=== PATIENT | female | born 1955 | race African-American/Black ===

== ENCOUNTER 2017-01-17 09:10 | Emergency (ER) | payer OTHER ==
[~2017-01-17] VITALS: Ht 162.6 cm; Wt 111.6 kg
[~2017-01-17 09:10] MED LIST: ALBUTEROL SULF8.5 GM INH; AMLODIPINE BESY10 MG ORAL; AMOXICILLIN500 MG PO; ASPIRIN81 MG ORAL; ATIVAN1 MG ORAL; ATORVASTATIN CA10 MG PO; ATORVASTATIN CA20 MG ORAL; AZITHROMYCIN250 MG ORAL; BENADRYL25 MG ORAL; BENAZEPRIL HCL20 MG ORAL; CIPRO500 MG PO; FIORICET1 EA ORAL; FLUTICASONE PRO16 G1 NASAL; FUROSEMIDE20 M1 ORAL; HYDROCHLOROTHIA25 MG PO; HYDROCHLOROTHIA50 MG ORAL; IBUPROFEN600 MG PO; LISINOPRIL20 MG ORAL; NORCO 5-325 TA1 EACH ORAL; NORCO 5-325 TA1 EACH PO; NORCO 7.5-3251 EACH ORAL; OSTERA TABLET1 EACH PO; PHENERGAN SUPP25 MG RECTAL; PREDNISONE20 MG ORAL; PROMETHAZINE-C118 M1 ORAL; RANITIDINE HCL150 MG ORAL; TENORMIN50 MG PO; TRUFORM COMPRE1 EACH MC; UNOBMED; VALIUM5 MG PO; VENTOLIN HFA18 GM INH; VICODIN 5-5001 EACH PO; VICODIN ES 7.51 EAC1 ORAL; VICODIN ES 7.51 EACH PO; ZOFRAN4 MG ORAL; ZOFRAN4 MG PO
[2017-01-17] MEDS ORDERED: LOSARTAN POTASS50 MG ORAL (09:15)
[2017-01-17 09:19] VITALS: BP 174/104
[2017-01-17] MEDS ORDERED: Famotidine 20 MG/ 2ML VIAL IVP ONE (09:30)
[2017-01-17] MEDS ORDERED: DiphenhydrAMINE 50mg/ml Inj IVP ONE (09:30)
[2017-01-17] MEDS ORDERED: Metoclopramide 10mg/2ml Inj IVP ONE (09:30)
[2017-01-17 09:59] LABS: BASOPHILS % (AUTO) 2.4 % (0.0-2.0); EOSINOPHILS % (AUTO) 0.7 % (0.0-3.0); LYMPHOCYTES % (AUTO) 33.9 % (20.0-45.0); MEAN CORPUSCULAR HGB CONC 32.8 G/DL (32.0-36.0); MEAN CORPUSCULAR VOLUME 91 FL (80-99); MONOCYTES % (AUTO) 7.5 % (1.0-10.0); NEUTROPHILS % (AUTO) 55.5 % (45.0-75.0); PLATELET COUNT 295 K/UL (150-450); RED BLOOD COUNT 4.66 M/UL (4.20-5.40); RED CELL DISTRIBUTION WIDTH 12.1 % (11.6-14.8); WHITE BLOOD COUNT 5.7 K/UL (4.8-10.8)
[2017-01-17 10:07] LABS: APPEARANCE,URINE CLEAR; KETONES,URINE NEGATIVE (NEGATIVE); LEUKOCYTE ESTERASE ,URINE 3+ (NEGATIVE); NITRITE,URINE NEGATIVE (NEGATIVE); PH,URINE 7 (4.5-8.0); PROTEIN,URINE 2+ (NEGATIVE); UROBILINOGEN,URINE 1 MG/DL (0.0-1.0)
[2017-01-17 10:12] LABS: INR 0.9 (0.9-1.1); PROTHROMBIN TIME 9.9 SEC (9.30-11.50)
--- NOTE | 2017-01-17 10:14 | Emergency Room Report ---
History of Present Illness General Chief Complaint: Hypertension Source: Patient, Medical Record Present Illness HPI Patient presents with headache for 3 days. It's across her forehead. Feels a pounding. This happens from migraines or when her blood pressure is out of control. She states her blood pressure has been out of control the past 3 days. She is taking her medications. She's not sure of the names (atenolol 50 , lisiopril ?, HCTZ, cozaar). Pain 8/10 pounding, not radiate, constant. No aura. No NV. No fevers, change in vision, chest pain, dyspnea. The last time this happened she got better with a medicine with IV benadryl. Not worst ARMENTA in life. No renal problems. In past treated with clonidine in ED. No on this med. Some stress. In past had dx of opiate dependence. Allergies: Coded Allergies: No Known Allergies (Verified , 06/03/08) Patient History Past Medical History: see triage record Nursing Documentation-PMH Hx Hypertension: Yes Hx Pacemaker: No Hx COPD: No Hx Diabetes: No Hx Cancer: No Hx Gastrointestinal Problems: Yes - GERD Hx Dialysis: No Hx Neurological Problems: Yes Hx Cerebrovascular Accident: No Hx Seizures: No Review of Systems All Other Systems: negative except mentioned in HPI Physical Exam Vital Signs Date Time Temp Pulse Resp B/P Pulse Ox O2 Delivery O2 Flow Rate FiO2 01/17/17 09:11 98.2 76 16 174/104 97 Room Air Sp02 EP Interpretation: reviewed, normal General Appearance: well appearing, no apparent distress, GCS 15 Head: normocephalic Eyes: bilateral eye EOMI, bilateral eye PERRL, bilateral eye normal inspection ENT: moist mucus membranes Neck: supple Respiratory: lungs clear, normal breath sounds Cardiovascular #1: regular rate, rhythm Cardiovascular #2: 2+ radial (R) Gastrointestinal: normal inspection, normal bowel sounds, non tender, no mass, non-distended Musculoskeletal: back normal, gait/station normal, normal range of motion Neurologic: alert, oriented x3, tuyere fitter III-XII nml as tested, motor strength/tone normal, DTRs symmetric, sensory intact, cerebellar normal, normal gait, speech normal Psychiatric: mood/affect normal Skin: normal inspection, warm/dry Medical Decision Making Diagnostic Impression: Primary Impression: Headache Qualified Codes: R51 - Headache Additional Impression: hypertension ER Course Patient presents with headache and hypertension. Ddx: HTN urgency/malignant, renal failure, migraine amongst others. No red flag sy or findings. Still need to review labs for renal function and eval cor and electrolytes. Will treat with IV reglan and benadryl. EKG unremarkable. Labs elevated ESR and UTI. Improved with treatment. Blood pressure not treated in ED directly. Abx started. Patient stable for outpatient observation and treatment. Laboratory Tests Test 01/17/17 09:30 01/17/17 09:40 Urine Color Yellow Urine Appearance Clear Urine pH 7 (4.5-8.0) Urine Specific [place] 1.010 (1.005-1.035) Urine Protein 2+ (NEGATIVE) H Urine Glucose (UA) Negative (NEGATIVE) Urine Ketones Negative (NEGATIVE) Urine Occult Blood 2+ (NEGATIVE) H Urine Nitrite Negative (NEGATIVE) Urine Bilirubin Negative (NEGATIVE) Urine Urobilinogen 1 MG/DL (0.0-1.0) H Urine Leukocyte Esterase 3+ (NEGATIVE) H Urine RBC 2-4 /HPF (0 - 2) H Urine WBC 5-10 /HPF (0 - 2) H Urine Squamous Epithelial Cells Few /LPF (NONE/OCC) Urine Bacteria Few /HPF (NONE) White Blood Count 5.7 K/UL (4.8-10.8) Red Blood Count 4.66 M/UL (4.20-5.40) Hemoglobin 14.0 G/DL (12.0-16.0) Hematocrit 42.6 % (37.0-47.0) Mean Corpuscular Volume 91 FL (80-99) Mean Corpuscular Hemoglobin 30.0 PG (27.0-31.0) Mean Corpuscular Hemoglobin Concent 32.8 G/DL (32.0-36.0) Red Cell Distribution Width 12.1 % (11.6-14.8) Platelet Count 295 K/UL (150-450) Mean Platelet Volume 7.0 FL (6.5-10.1) Neutrophils (%) (Auto) 55.5 % (45.0-75.0) Lymphocytes (%) (Auto) 33.9 % (20.0-45.0) Monocytes (%) (Auto) 7.5 % (1.0-10.0) Eosinophils (%) (Auto) 0.7 % (0.0-3.0) Basophils (%) (Auto) 2.4 % (0.0-2.0) H Erythrocyte Sedimentation Rate 63 MM/HR (0-30) H Prothrombin Time 9.9 SEC (9.30-11.50) Prothrombin Time INR 0.9 (0.9-1.1) PTT 26 SEC (23-33) Sodium Level 139 mEQ/L (135-145) Potassium Level 4.6 mEQ/L (3.4-4.9) Chloride Level 97 mEQ/L (98-107) L Carbon Dioxide Level 26 mEQ/L (20-30) Anion Gap 16 (5-15) H Blood Urea Nitrogen 10 mg/dL (7-23) Creatinine 0.7 mg/dL (0.5-0.9) Estimate Glomerular Filtration Rate > 60 mL/min (>60) Glucose Level 115 mg/dL (74-106) H Calcium Level 11.0 mg/dL (8.6-10.2) H Total Bilirubin 0.4 mg/dL (0.0-1.2) Aspartate Amino Transferase (AST) 22 U/L (5-40) Alanine Aminotransferase (ALT) 14 U/L (3-33) Alkaline Phosphatase 141 U/L (35-104) H Total Creatine Kinase 64 U/L (26-140) Troponin I < 0.30 ng/mL (<=0.30) Pro-B-Type Natriuretic Peptide 104 pg/mL (0-125) Total Protein 8.5 g/dL (6.6-8.7) Albumin 4.4 g/dL (3.5-5.2) Globulin 4.1 g/dL Albumin/Globulin Ratio 1.0 (1.0-2.7) EKG Diagnostic Results Rate: normal Rhythm: NSR ST Segments: no acute changes - lvh Rhythm Strip Diag. Results EP Interpretation: yes Rhythm: NSR, no PVC's, no ectopy Chest X-Ray Diagnostic Results Chest X-Ray Ordered: No Last Vital Signs Date Time Temp Pulse Resp B/P Pulse Ox O2 Delivery O2 Flow Rate FiO2 01/17/17 11:02 98.2 69 16 166/93 97 Room Air Status: improved Disposition: HOME, SELF-CARE Condition: Improved Scripts Nitrofurantoin Monohyd/M-Cryst* (MACROBID 100 MG*) 100 Mg Capsule 100 MG ORAL EVERY 12 HOURS, #14 CAP Prov: Dylan Wang M.D. 01/17/17 Acetamin/Butalbital/Caffeine* (FIORICET*) 1 Ea Tab 1 TAB ORAL Q6H, #6 TAB 0 Refills Prov: Dylan Wang M.D. 01/17/17 Referrals: [facility],REFERRING (PCP) Dylan Wang M.D. Jan 17, 2017 10:14
[2017-01-17 10:17] LABS: BACTERIA,URINE FEW /HPF; SQUAMOUS EPITHELIAL CELL,UR FEW /LPF (NONE/OCC)
[2017-01-17 10:18] LABS: ALANINE AMINOTRANSFERASE 14 U/L (3-33); ANION GAP 16 (5-15); ASPARTATE AMINO TRANSFERASE 22 U/L (5-40); CARBON DIOXIDE 26 mEQ/L (20-30); CHLORIDE 97 mEQ/L (98-107); CREATININE 0.7 mg/dL (0.5-0.9); GLOMERULAR FILTRATION RATE > 60 mL/min (>60); HEMOLYSIS 98; POTASSIUM 4.6 mEQ/L (3.4-4.9); SODIUM 139 mEQ/L (135-145); TOTAL PROTEIN 8.5 g/dL (6.6-8.7); TROPONIN I < 0.30 ng/mL (<=0.30)
[2017-01-17 10:55] VITALS: BP 166/93
[2017-01-17] MEDS ORDERED: NITROFURANTOIN100 M2 ORAL (10:57)
[2017-01-17] MEDS ORDERED: FIORICET1 EA ORAL (10:57)
[2017-01-17 11:02] VITALS: BP 166/93
[2017-01-17 11:14] LABS: ERYTHROCYTE SEDIMENTATION RATE 63 MM/HR (0-30)
--- NOTE | 2017-01-18 16:39 | Cardiology Report ---
APPROVED REPORT EKG Measurement Heart [id number] Normal sinus rhythm Moderate voltage criteria for LVH, may be normal variant Borderline ECG
== END 2017-01-17 11:16 | disposition home or self-care (01) ==
LOC: EMR 09:37
DX: R51 Headache (principal); I10 Essential (primary) hypertension; K21.9 Gastro-esophageal reflux disease without esophagitis
CPT/HCPCS: 36415; 80053; 81003; 82550; 83880; 84484; 85025; 85610; 85651; 85730; 93005; 96374; 96375; 99284; J1200; J2765; S0028

== ENCOUNTER 2017-04-01 11:03 | Emergency (ER) | payer OTHER ==
[~2017-04-01] VITALS: Ht 162.6 cm; Wt 111.6 kg
[~2017-04-01 11:03] MED LIST changes: +LOSARTAN POTASS50 MG ORAL; +NITROFURANTOIN100 M2 ORAL
[2017-04-01 11:27] VITALS: BP 159/99
[2017-04-01] MEDS ORDERED: Bacitracin Oint UD TOPIC ONE (12:00)
[2017-04-01] MEDS ORDERED: Tetanus/Diptheria/Pertussis Vaccine 0.5ml Syr IM ONE (12:00)
--- NOTE | 2017-04-01 12:16 | Emergency Room Report ---
History of Present Illness General Chief Complaint: Laceration Source: Patient Present Illness HPI Patient taking out trash and cut finger on broken bottle. Bandaged by neighbor and not sig bleeding. Pain = sharp and stinging 8/10. NO numbness. Tetanus > 10. R handed. C/O headache. Mild migraine (usually worse, but similar pattern). Allergies: Coded Allergies: No Known Allergies (Verified , 06/03/08) Patient History Past Medical History: see triage record Social History: Denies: smoking Social History Narrative disabled Last Menstrual Period: na Reviewed Nursing Documentation: PMH: Agreed, PSxH: Agreed Nursing Documentation-PMH Past Medical History: No History, Except For Hx Hypertension: Yes Hx Pacemaker: No Hx COPD: No Hx Diabetes: No Hx Cancer: No Hx Gastrointestinal Problems: Yes - GERD Hx Dialysis: No Hx Neurological Problems: Yes Hx Cerebrovascular Accident: No Hx Seizures: No Review of Systems Constitutional: Denies: fever Eye: Denies: eye pain, blurred vision ENT: Denies: throat pain Gastrointestinal: Denies: nausea, vomiting Musculoskeletal: Reports: see HPI Skin: Reports: see HPI Neurological: Reports: see HPI Hematologic/Lymphatic: Reports: see HPI Physical Exam Vital Signs Date Time Temp Pulse Resp B/P (MAP) Pulse Ox O2 Delivery O2 Flow Rate FiO2 04/01/17 11:21 99.5 64 18 159/99 98 Room Air Sp02 EP Interpretation: reviewed, normal General Appearance: well appearing, no apparent distress Head: normocephalic, atraumatic Eyes: bilateral eye normal inspection, bilateral eye PERRL ENT: hearing grossly normal, normal voice, moist mucus membranes Neck: full range of motion, supple Respiratory: no respiratory distress, speaking full sentences Cardiovascular #1: regular rate, rhythm Cardiovascular #2: 2+ radial (R) - good vasc Musculoskeletal: gait/station normal, normal range of motion Neurologic: alert, motor strength/tone normal, sensory intact Psychiatric: mood/affect normal Skin: normal color, other - superficial lac on R thumb - not need sutures - wart on knuckle of adjacent finger, laceration - R little finger Procedures Laceration/Wound Repair Laceration/Wound Repair : Consent: Verbal Wound Location: upper extremity Wound's Depth, Shape: superficial Wound Length (cm): 2 - 2.5 Wound Explored: clean Betadine Prep?: Yes Anesthesia: 1% Lidocaine Wound Debrided: none Wound Repaired With: sutures Suture Size/Type: 6:0 Layer Closure?: No Sterile Dressing Applied?: Yes Splint Applied?: No Patient Tolerated: Well Complications: None Medical Decision Making Diagnostic Impression: Primary Impression: Laceration Additional Impression: Headache Qualified Codes: R51 - Headache ER Course Patient with glass laceration. Needs sutures. Needs tetanus. Neurovasc and tendons intact. Laceration repaired. Tolerated well. C/O ARMENTA. Initially asked for shot. Then asked for rx. Patient stable for outpatient observation and treatment. Prior dx noted Last Vital Signs Date Time Temp Pulse Resp B/P (MAP) Pulse Ox O2 Delivery O2 Flow Rate FiO2 04/01/17 12:35 99.5 64 18 159/99 98 Room Air Status: improved Disposition: HOME, SELF-CARE Condition: Improved Scripts Ibuprofen* (MOTRIN*) 600 Mg Tablet 600 MG ORAL Q6H Y for For Pain, #14 TAB Prov: Dylan Wang M.D. 04/01/17 Tramadol Hcl* (ULTRAM*) 50 Mg Tablet 50 MG ORAL Q6H Y for For Pain, #6 TAB 0 Refills Prov: Dylan Wang M.D. 04/01/17 Bacitracin (Bacitracin) 28.4 Gm Oint...g. 1 APPLIC TOPIC BID, #10 GM Prov: Dylan Wang M.D. 04/01/17 Dylan Wang M.D. Apr 01, 2017 12:16
[2017-04-01] MEDS ORDERED: BACITRACIN15 GM TOPIC (12:18)
[2017-04-01] MEDS ORDERED: TRAMADOL HCL50 MG ORAL (12:18)
[2017-04-01] MEDS ORDERED: IBUPROFEN600 MG ORAL (12:18)
[2017-04-01 12:35] VITALS: BP 159/99
== END 2017-04-01 13:00 | disposition home or self-care (01) ==
LOC: EMR 12:50
DX: S61.011A Laceration without foreign body of right thumb without damage to nail, initial encounter (principal); S61.216A Laceration without foreign body of right little finger without damage to nail, initial encounter; W25.XXXA Contact with sharp glass, initial encounter; Y92.89 Other specified places as the place of occurrence of the external cause; R51 Headache; Z23 Encounter for immunization; I10 Essential (primary) hypertension; K21.9 Gastro-esophageal reflux disease without esophagitis
CPT/HCPCS: 12001; 90471; 90715; 99284; Z7502

== ENCOUNTER 2017-07-04 10:31 | Emergency (ER) | payer OTHER ==
[~2017-07-04] VITALS: Ht 162.6 cm; Wt 113.4 kg
[~2017-07-04 10:31] MED LIST changes: +BACITRACIN15 GM TOPIC; +IBUPROFEN600 MG ORAL; +TRAMADOL HCL50 MG ORAL
[2017-07-04] MEDS ORDERED: ATORVASTATIN CA20 MG ORAL (10:42)
[2017-07-04] MEDS ORDERED: LOSARTAN POTASS50 MG ORAL (10:42)
[2017-07-04] MEDS ORDERED: HYDROCHLOROTHIA25 MG ORAL (10:42)
[2017-07-04 10:46] VITALS: BP 148/87
[2017-07-04] MEDS ORDERED: MECLIZINE HCL25 MG ORAL (11:11)
[2017-07-04 11:15] VITALS: BP 147/88
[2017-07-04] MEDS ORDERED: Meclizine 25mg tab ORAL ONE (11:15)
--- NOTE | 2017-07-10 06:56 | Emergency Room Report ---
History of Present Illness General Chief Complaint: Dizziness Source: Patient Present Illness HPI Patient is 62-year-old female presented after increased dizziness. Patient gradual onset of symptoms. She reports having spinning sensation. She denied any fever. She had prior history of hypertension. Patient reported having a moderate headache. The dizziness was worse with movement. Allergies: Coded Allergies: No Known Allergies (Verified , 06/03/08) Patient History Past Medical History: see triage record Reviewed Nursing Documentation: PMH: Agreed, PSxH: Agreed Nursing Documentation-PMH Hx Hypertension: Yes Hx Pacemaker: No Hx COPD: No Hx Diabetes: No Hx Cancer: No Hx Gastrointestinal Problems: Yes - GERD Hx Dialysis: No Hx Neurological Problems: Yes Hx Cerebrovascular Accident: No Hx Seizures: No Review of Systems All Other Systems: negative except mentioned in HPI Physical Exam Vital Signs Date Time Temp Pulse Resp B/P (MAP) Pulse Ox O2 Delivery O2 Flow Rate FiO2 07/04/17 10:39 98.1 84 20 153/109 99 Room Air General Appearance: well appearing, no apparent distress, alert, GCS 15, non- toxic Head: normocephalic, atraumatic ENT: hearing grossly normal, normal voice Neck: full range of motion, supple Respiratory: no respiratory distress, speaking full sentences Cardiovascular #1: normal inspection, regular rate, rhythm, no edema Gastrointestinal: normal inspection, normal bowel sounds Musculoskeletal: no calf tenderness Neurologic: normal inspection, alert, oriented x3, responsive, pediatric psychiatrist III-XII nml as tested, motor strength/tone normal, normal gait Psychiatric: mood/affect normal Skin: no rash Medical Decision Making Diagnostic Impression: Primary Impression: Vertigo ER Course Patient presented for dizziness. Differential diagnosis included but not limited to urinary tract infection, anemia, arrhythmia, abdominal aortic aneurysm, CVA, subarachnoid hemorrhage, benign positional vertigo. A CT imaging was ordered due to patient's concerning history. She is given oral meclizine. The patient was awake alert and refused CT imaging and stated she wanted to leave. The patient was advised risk benefits alternatives of leaving AGAINST MEDICAL ADVICE and he indicated understanding and all questions are answered patient still continued want to leave and signed AGAINST MEDICAL ADVICE. Despite risks including but not limited to disability and worsening of current lifestyle. The patient was advised to return at anytime. Last Vital Signs Date Time Temp Pulse Resp B/P (MAP) Pulse Ox O2 Delivery O2 Flow Rate FiO2 07/04/17 11:15 98.2 78 20 147/88 99 Room Air Status: improved Disposition: AGAINST MEDICAL ADVICE Condition: Unknown Scripts Meclizine Hcl* (MECLIZINE*) 25 Mg Tablet 25 MG ORAL THREE TIMES A DAY, #14 TAB Prov: Felix Whitehead 07/04/17 Referrals: [facility],REFERRING (PCP) Patient Instructions: Vertigo Felix Whitehead Jul 10, 2017 06:56
== END 2017-07-04 11:25 | disposition left against medical advice (07) ==
LOC: EMR 10:42
DX: R42 Dizziness and giddiness (principal); I10 Essential (primary) hypertension
CPT/HCPCS: 99283

== ENCOUNTER 2017-10-24 14:32 | Emergency (ER) | payer OTHER ==
[~2017-10-24] VITALS: Ht 162.6 cm; Wt 112.9 kg
[~2017-10-24 14:32] MED LIST changes: +HYDROCHLOROTHIA25 MG ORAL; +MECLIZINE HCL25 MG ORAL
[2017-10-24 15:47] LABS: BASOPHILS % (AUTO) 1.6 % (0.0-2.0); EOSINOPHILS % (AUTO) 0.5 % (0.0-3.0); HEMOGLOBIN 13.9 G/DL (12.0-16.0); LYMPHOCYTES % (AUTO) 30.9 % (20.0-45.0); MEAN CORPUSCULAR VOLUME 92 FL (80-99); MONOCYTES % (AUTO) 11.2 % (1.0-10.0); NEUTROPHILS % (AUTO) 55.9 % (45.0-75.0); PLATELET COUNT 285 K/UL (150-450); RED BLOOD COUNT 4.48 M/UL (4.20-5.40); RED CELL DISTRIBUTION WIDTH 12.5 % (11.6-14.8); WHITE BLOOD COUNT 7.7 K/UL (4.8-10.8)
[2017-10-24] MEDS ORDERED: Morphine Sulfate 2mg/ml Inj IVP ONE (16:00)
[2017-10-24 16:02] LABS: ANION GAP 9 mmol/L (5-15); BLOOD UREA NITROGEN 7 mg/dL (7-18); CALCIUM 10.7 MG/DL (8.5-10.1); CARBON DIOXIDE 27 MMOL/L (21-32); CHLORIDE 104 MMOL/L (98-107); CREATININE 0.6 MG/DL (0.55-1.30); POTASSIUM 3.8 MMOL/L (3.5-5.1); SODIUM 140 MMOL/L (136-145)
[2017-10-24 16:16] LABS: ALANINE AMINOTRANSFERASE 28 U/L (12-78); ALBUMIN 3.5 G/DL (3.4-5.0); ALBUMIN/GLOBULIN RATIO 0.8 (1.0-2.7); ALKALINE PHOSPHATASE 111 U/L (46-116); ASPARTATE AMINO TRANSFERASE 22 U/L (15-37); BILIRUBIN,TOTAL 0.3 MG/DL (0.2-1.0)
[2017-10-24 16:23] LABS: APPEARANCE,URINE CLEAR; BILIRUBIN, URINE NEGATIVE (NEGATIVE); COLOR,URINE PALE YELLOW; GLUCOSE, URINE (UA) NEGATIVE (NEGATIVE); KETONES,URINE NEGATIVE (NEGATIVE); LEUKOCYTE ESTERASE ,URINE 1+ (NEGATIVE); NITRITE,URINE NEGATIVE (NEGATIVE); PH,URINE 7 (4.5-8.0); PROTEIN,URINE 1+ (NEGATIVE); UROBILINOGEN,URINE NORMAL MG/DL (0.0-1.0)
[2017-10-24 16:36] VITALS: BP 137/82
[2017-10-24] MEDS ORDERED: LOPERAMIDE2 M1 PO (17:12)
[2017-10-24 17:32] VITALS: BP 137/82
--- NOTE | 2017-10-24 22:25 | Emergency Room Report ---
History of Present Illness General Chief Complaint: Generalized Weakness Source: Patient Present Illness HPI Patient is a 62-year-old female who presented after increased generalized weakness as well as headache and diarrhea. Patient had multiple sick contacts at home. Patient states that she had been having some gradual onset of moderate severity headache. She denies any fever. She denies any neck stiffness. She reported having intermittent abdominal cramping. She denies black or bloody stool. She reports having some watery diarrhea. She denied feeling dizzy or lightheaded. She states she normally takes blood pressure medications. Allergies: Coded Allergies: No Known Allergies (Verified , 06/03/08) Patient History Past Medical History: see triage record Last Menstrual Period: na Reviewed Nursing Documentation: PMH: Agreed; PSxH: Agreed Nursing Documentation-PMH Past Medical History: No History, Except For Hx Cardiac Problems: Yes - "irregual heartrate" Hx Hypertension: Yes Hx Pacemaker: No Hx COPD: No Hx Diabetes: No Hx Cancer: No Hx Gastrointestinal Problems: Yes - GERD Hx Dialysis: No Hx Neurological Problems: Yes - migraines Hx Cerebrovascular Accident: No Hx Seizures: No Review of Systems All Other Systems: negative except mentioned in HPI Physical Exam Vital Signs Date Time Temp Pulse Resp B/P (MAP) Pulse Ox O2 Delivery O2 Flow Rate FiO2 10/24/17 14:40 98.8 107 20 141/90 96 Room Air 98.8 Sp02 EP Interpretation: reviewed, normal General Appearance: normal inspection, well appearing, no apparent distress, alert, obese Head: atraumatic ENT: normal ENT inspection, hearing grossly normal, normal voice Neck: normal inspection, full range of motion, supple, no bony tend Respiratory: normal inspection, lungs clear, normal breath sounds, no respiratory distress, no retraction, no wheezing Cardiovascular #1: regular rate, rhythm, no edema Gastrointestinal: normal inspection, normal bowel sounds, non tender, soft, no guarding, no hernia Genitourinary: no CVA tenderness Musculoskeletal: normal inspection, back normal, normal range of motion Neurologic: normal inspection, alert, oriented x3, responsive, french folder III-XII nml as tested, motor strength/tone normal, speech normal Psychiatric: normal inspection, judgement/insight normal, mood/affect normal Skin: normal inspection, normal color, no rash Medical Decision Making Diagnostic Impression: Primary Impression: Headache Additional Impression: Viral syndrome ER Course Patient presented for generalized weakness. Differential diagnosis included was not limited to anemia, urinary tract infection, electrolyte abnormality, hypothyroidism, myocardial infarction, myasthenia gravis, dehydration, among others. Because of complexity of patient's case laboratory testing and imaging studies were ordered. Laboratory study showed evidence low TSH. Patient was advised to follow up with primary care physician for further testing and treatment. Patient was given medications for headache. She stated she felt better and wanted to go home. The patient is advised to follow up with primary care doctor in 1-2 days. Patient is advised to return if any worsening condition or if any changes in status that are concerning. This report is dictated with Spark physical therapy teacher software which may occasionally lead to discrepancies related to use of this software. Laboratory Tests Test 10/24/17 14:30 10/24/17 15:30 Urine Color Pale yellow Urine Appearance Clear Urine pH 7 (4.5-8.0) Urine Specific [place] 1.005 (1.005-1.035) Urine Protein 1+ (NEGATIVE) H Urine Glucose (UA) Negative (NEGATIVE) Urine Ketones Negative (NEGATIVE) Urine Occult Blood 1+ (NEGATIVE) H Urine Nitrite Negative (NEGATIVE) Urine Bilirubin Negative (NEGATIVE) Urine Urobilinogen Normal MG/DL (0.0-1.0) Urine Leukocyte Esterase 1+ (NEGATIVE) H Urine RBC 2-4 /HPF (0 - 2) H Urine WBC 0-2 /HPF (0 - 2) Urine Squamous Epithelial Cells Occasional /LPF Urine Bacteria Occasional /HPF (NONE) White Blood Count 7.7 K/UL (4.8-10.8) Red Blood Count 4.48 M/UL (4.20-5.40) Hemoglobin 13.9 G/DL (12.0-16.0) Hematocrit 41.0 % (37.0-47.0) Mean Corpuscular Volume 92 FL (80-99) Mean Corpuscular Hemoglobin 31.0 PG (27.0-31.0) Mean Corpuscular Hemoglobin Concent 33.8 G/DL (32.0-36.0) Red Cell Distribution Width 12.5 % (11.6-14.8) Platelet Count 285 K/UL (150-450) Mean Platelet Volume 6.7 FL (6.5-10.1) Neutrophils (%) (Auto) 55.9 % (45.0-75.0) Lymphocytes (%) (Auto) 30.9 % (20.0-45.0) Monocytes (%) (Auto) 11.2 % (1.0-10.0) H Eosinophils (%) (Auto) 0.5 % (0.0-3.0) Basophils (%) (Auto) 1.6 % (0.0-2.0) Sodium Level 140 MMOL/L (136-145) Potassium Level 3.8 MMOL/L (3.5-5.1) Chloride Level 104 MMOL/L (98-107) Carbon Dioxide Level 27 MMOL/L (21-32) Anion Gap 9 mmol/L (5-15) Blood Urea Nitrogen 7 mg/dL (7-18) Creatinine 0.6 MG/DL (0.55-1.30) Estimate Glomerular Filtration Rate > 60 mL/min (>60) Glucose Level 96 MG/DL (74-106) Calcium Level 10.7 MG/DL (8.5-10.1) H Total Bilirubin 0.3 MG/DL (0.2-1.0) Aspartate Amino Transferase (AST) 22 U/L (15-37) Alanine Aminotransferase (ALT) 28 U/L (12-78) Alkaline Phosphatase 111 U/L (46-116) Troponin I 0.053 ng/mL (0.000-0.056) Total Protein 7.9 G/DL (6.4-8.2) Albumin 3.5 G/DL (3.4-5.0) Globulin 4.4 g/dL Albumin/Globulin Ratio 0.8 (1.0-2.7) L Thyroid Stimulating Hormone (TSH) 0.207 uiU/mL (0.358-3.740) EKG Diagnostic Results Rate: normal - 84 Rhythm: NSR ST Segments: no acute changes Last Vital Signs Date Time Temp Pulse Resp B/P (MAP) Pulse Ox O2 Delivery O2 Flow Rate FiO2 10/24/17 17:32 98.0 85 20 137/82 96 Room Air 98.0 Status: improved Disposition: HOME, SELF-CARE Condition: Stable Scripts Loperamide Hcl (LOPERAMIDE) 2 Mg Tablet 2 MG PO NEEDED PRN for Diarrhea, #20 TAB Prov: Felix Whitehead 10/24/17 Patient Instructions: Felix Ramirez Oct 24, 2017 22:25
--- NOTE | 2017-10-25 16:11 | Cardiology Report ---
APPROVED REPORT EKG Measurement Heart [id number] IN [id number] Normal sinus rhythm Minimal voltage criteria for LVH, may be normal variant Borderline ECG
== END 2017-10-24 17:34 | disposition home or self-care (01) ==
LOC: EMR 15:15
DX: R51 Headache (principal); B34.9 Viral infection, unspecified; I10 Essential (primary) hypertension; K21.9 Gastro-esophageal reflux disease without esophagitis
CPT/HCPCS: 36415; 80053; 81001; 82962; 84443; 84484; 85025; 93005; 96374; 96375; 99284; J0780; J2270

== ENCOUNTER 2017-12-04 15:45 | Emergency (ER) | payer OTHER ==
[~2017-12-04] VITALS: Ht 162.6 cm; Wt 112.5 kg
[~2017-12-04 15:45] MED LIST changes: +LOPERAMIDE2 M1 PO
[2017-12-04] MEDS ORDERED: NORVASC10 MG ORAL (16:03)
[2017-12-04] MEDS ORDERED: NORCO 10-325 T1 EACH ORAL (16:03)
[2017-12-04 16:04] VITALS: BP 160/98
[2017-12-04] MEDS ORDERED: Meclizine 25mg tab ORAL ONE (16:15)
[2017-12-04] MEDS ORDERED: MECLIZINE HCL25 MG ORAL (16:56)
[2017-12-04 18:33] VITALS: BP 160/98
--- NOTE | 2017-12-04 19:54 | Emergency Room Report ---
History of Present Illness General Chief Complaint: Dizziness Source: Patient Present Illness HPI 62-year-old female presents ED complaining of headache and dizziness 2 days. Headache is throbbing, 8 out of 10, nonradiating. History of migraine. Denies photophobia. Also complaining of head spinning sensation. Denies neck stiffness. Denies fevers or chills. states she's had vertigo in the past and was prescribed medication which helped. No other aggravating or relieving factors. Denies any other associated symptoms Allergies: Coded Allergies: No Known Allergies (Verified , 06/03/08) Patient History Past Medical History: HTN, GERD, migraines Pertinent Family History: none Social History: Denies: smoking, alcohol use, drug use Now: No Immunizations: UTD Reviewed Nursing Documentation: PMH: Agreed; PSxH: Agreed Nursing Documentation-PMH Hx Cardiac Problems: Yes - "irregual heartrate" Hx Hypertension: Yes Hx Pacemaker: No Hx COPD: No Hx Diabetes: No Hx Cancer: No Hx Gastrointestinal Problems: Yes - GERD Hx Dialysis: No Hx Neurological Problems: Yes - migraines Hx Cerebrovascular Accident: No Hx Seizures: No Review of Systems All Other Systems: negative except mentioned in HPI Physical Exam Vital Signs Date Time Temp Pulse Resp B/P (MAP) Pulse Ox O2 Delivery O2 Flow Rate FiO2 12/04/17 15:59 98.3 87 20 160/98 99 Room Air 98.2 Sp02 EP Interpretation: reviewed, normal General Appearance: no apparent distress, alert, GCS 15, non-toxic Head: normocephalic, atraumatic Eyes: bilateral eye normal inspection, bilateral eye PERRL ENT: hearing grossly normal, normal pharynx, no angioedema, normal voice Neck: full range of motion, supple/symm/no masses Respiratory: chest non-tender, lungs clear, normal breath sounds, speaking full sentences Cardiovascular #1: regular rate, rhythm, no edema Cardiovascular #2: 2+ carotid (R), 2+ carotid (L), 2+ radial (R), 2+ radial (L) , 2+ dorsalis pedis (R), 2+ dorsalis pedis (L) Gastrointestinal: normal bowel sounds, non tender, soft, non-distended, no guarding, no rebound Rectal: deferred Genitourinary: normal inspection, no CVA tenderness Musculoskeletal: back normal, gait/station normal, normal range of motion, non- tender Neurologic: alert, oriented x3, responsive, harbormaster III-XII nml as tested, motor strength/tone normal, sensory intact, cerebellar normal, normal gait, speech normal Psychiatric: judgement/insight normal, memory normal, mood/affect normal, no suicidal/homicidal ideation Reflexes: 3+ bicep (R), 3+ bicep (L), 3+ tricep (R), 3+ tricep (L), 3+ knee (R) , 3+ knee (L) Skin: normal color, no rash, warm/dry, well hydrated Lymphatic: no adenopathy Medical Decision Making Diagnostic Impression: Primary Impression: Vertigo ER Course Hospital Course 62 yo F presents to ED c/o dizziness, headache Differential diagnoses include: MO/unstable angina, SVT, A. fib, V. tach, CVA/ TIA, intracranial mass, vertigo Clinical course Patient placed on stretcher. on classroom monitor. After initial history, physical exam reveals a middle-aged female in no acute distress. Cranial nerves II through XII grossly intact. Cerebellar exam intact. Normal gait. Patient had been here previously for similar presentation area patient was offered option for CT and workup which she declined then. I offered same workup at this time which she also declined. Patient states because of her migraine history she's had multiple CTs and MRIs all of which have been negative States that the meclizine did work well for her. patient given meclizine here Upon reassessment patient states his symptoms have improved. I. I feel this is a highly complex case requiring extensive working including EKG/Rhythm strip, Xray/CT/US, Blood/urine lab work, repeat exams while in ED, and administration of strong opiates/narcotics for pain control, admission to hospital or close patient follow up. Diagnosis - vertigo stable and discharged to home with prescription for meclizine. Followup with PMD. Return to ED if symptoms recur or worsen Last Vital Signs Date Time Temp Pulse Resp B/P (MAP) Pulse Ox O2 Delivery O2 Flow Rate FiO2 12/04/17 18:33 98.2 87 20 160/98 99 Room Air 98.2 Status: improved Disposition: HOME, SELF-CARE Condition: Stable Scripts Meclizine Hcl* (MECLIZINE*) 25 Mg Tablet 25 MG ORAL THREE TIMES A DAY, #20 TAB Prov: Filiberto Gray MD 12/04/17 Referrals: [facility],REFERRING (PCP) Patient Instructions: Vertigo Filiberto Gray MD December 04, 2017 19:54
== END 2017-12-04 17:15 | disposition home or self-care (01) ==
LOC: EMR 16:19
DX: R42 Dizziness and giddiness (principal); R51 Headache; I10 Essential (primary) hypertension; K21.9 Gastro-esophageal reflux disease without esophagitis; Z86.69 Personal history of other diseases of the nervous system and sense organs
CPT/HCPCS: 99283

== ENCOUNTER 2018-03-21 10:04 | Emergency (ER) | payer OTHER ==
[~2018-03-21] VITALS: Ht 162.6 cm; Wt 112.5 kg
[~2018-03-21 10:04] MED LIST changes: +NORCO 10-325 T1 EACH ORAL; +NORVASC10 MG ORAL
[2018-03-21 10:15] VITALS: BP 161/95
[2018-03-21] MEDS ORDERED: IBUPROFEN600 MG ORAL (10:24)
[2018-03-21] MEDS ORDERED: ALBUTEROL SULF8.5 GM INH (10:24)
[2018-03-21] MEDS ORDERED: CEPHALEXIN500 MG ORAL (10:24)
[2018-03-21 10:32] VITALS: BP 159/94
[2018-03-21 10:34] VITALS: BP 159/94
--- NOTE | 2018-03-21 12:41 | Emergency Room Report ---
History of Present Illness General Chief Complaint: Skin Rash/Abscess Source: Patient Present Illness HPI 62-year-old female presents ED complaining of insect bite to her forehead. States that she believes it is a spider bite. Happened last night. Noted pain and swelling to her forehead. Throbbing, 8 out of 10, nonradiating. States there are spiders in her house. Also complaining of a mild cough for a few days. States history of bronchitis. Denies fevers or chills. Denies shortness of breath. No other aggravating relieving factors. Denies any other associated symptoms Allergies: Coded Allergies: No Known Allergies (Verified , 06/03/08) Patient History Past Medical History: none, GERD, migraines Past Surgical History: none Pertinent Family History: none Social History: Denies: smoking, alcohol use, drug use Now: No Immunizations: UTD Reviewed Nursing Documentation: PMH: Agreed Nursing Documentation-PMH Past Medical History: No History, Except For Hx Cardiac Problems: Yes - "irregual heartrate" Hx Hypertension: Yes Hx Pacemaker: No Hx COPD: No Hx Diabetes: No Hx Cancer: No Hx Gastrointestinal Problems: Yes - GERD Hx Dialysis: No Hx Neurological Problems: Yes - migraines Hx Cerebrovascular Accident: No Hx Seizures: No Review of Systems All Other Systems: negative except mentioned in HPI Physical Exam Vital Signs Date Time Temp Pulse Resp B/P (MAP) Pulse Ox O2 Delivery O2 Flow Rate FiO2 03/21/18 10:07 98.7 74 18 161/95 100 Room Air 98.8 Sp02 EP Interpretation: reviewed, normal General Appearance: no apparent distress, alert, GCS 15, non-toxic Head: normocephalic, atraumatic Eyes: bilateral eye normal inspection, bilateral eye PERRL ENT: hearing grossly normal, normal pharynx, no angioedema, normal voice Neck: full range of motion, supple/symm/no masses Respiratory: chest non-tender, lungs clear, normal breath sounds, speaking full sentences Cardiovascular #1: regular rate, rhythm, no edema Cardiovascular #2: 2+ carotid (R), 2+ carotid (L), 2+ radial (R), 2+ radial (L) , 2+ dorsalis pedis (R), 2+ dorsalis pedis (L) Gastrointestinal: normal bowel sounds, non tender, soft, non-distended, no guarding, no rebound Rectal: deferred Genitourinary: normal inspection, no CVA tenderness Musculoskeletal: back normal, gait/station normal, normal range of motion, non- tender Neurologic: alert, oriented x3, responsive, motor strength/tone normal, sensory intact, speech normal Psychiatric: judgement/insight normal, memory normal, mood/affect normal, no suicidal/homicidal ideation Reflexes: 3+ bicep (R), 3+ bicep (L), 3+ tricep (R), 3+ tricep (L), 3+ knee (R) , 3+ knee (L) Skin: normal color, warm/dry, well hydrated, other - 2x2cm area of induration/ erythema to R upper forehead. no fluctuance/discharge Lymphatic: no adenopathy Medical Decision Making Diagnostic Impression: Primary Impression: Insect bite Qualified Codes: W57.XXXA - Bitten or stung by nonvenomous insect and other nonvenomous arthropods, initial encounter Additional Impression: Bronchitis ER Course Hospital Course 62-year-old female presents to ED with redness, swelling to forehead Differential diagnoses include: Cellulitis, dermatitis, insect bite, abscess Clinical course Patient placed on stretcher. After initial history, physical exam reveals an elderly female in no acute distress. On exam there is a site for mild erythema and sweling to the forehead. There is no fluctuance. Lungs clear. Remainder physical exam unremarkable. We will treat with antibiotics. Warm compresses. Prescribe inhaler for her bronchitis Diagnosis - insect bite, bronchitis stable and discharged to home with prescription for albuterol, motrin, Keflex. Instructed to followup with PMD. Instructed return to ED if symptoms recur or worsen Last Vital Signs Date Time Temp Pulse Resp B/P (MAP) Pulse Ox O2 Delivery O2 Flow Rate FiO2 03/21/18 10:34 98.8 72 18 159/94 100 Room Air 98.8 Status: improved Disposition: HOME, SELF-CARE Condition: Stable Scripts Ibuprofen* (MOTRIN*) 600 Mg Tablet 600 MG ORAL Q8H PRN for For Pain, #30 TAB 0 Refills Prov: Filiberto Gray MD 03/21/18 Cephalexin* (KEFLEX*) 500 Mg Capsule 500 MG ORAL EVERY 6 HOURS for 7 Days, CAP Prov: Filiberto Gray MD 03/21/18 Albuterol Sulfate* (ALBUTEROL SULFATE MDI*) 8.5 Gm Hfa.aer.ad 2 PUFF INH Q4H PRN for cough/wheezing, #1 EA 0 Refills Prov: Filiberto Gray MD 03/21/18 Referrals: [facility],REFERRING (PCP) Patient Instructions: Insect Bite, [id number] Filiberto Gray MD Mar 21, 2018 12:41
== END 2018-03-21 10:43 | disposition home or self-care (01) ==
LOC: EMR 10:27
DX: S00.86XA Insect bite (nonvenomous) of other part of head, initial encounter (principal); K21.9 Gastro-esophageal reflux disease without esophagitis; I10 Essential (primary) hypertension; W57.XXXA Bitten or stung by nonvenomous insect and other nonvenomous arthropods, initial encounter; Y92.009 Unspecified place in unspecified non-institutional (private) residence as the place of occurrence of the external cause
CPT/HCPCS: 99284

== ENCOUNTER 2018-08-26 15:35 | Emergency (ER) | payer OTHER ==
[~2018-08-26] VITALS: Ht 162.6 cm; Wt 111.1 kg
[~2018-08-26 15:35] MED LIST changes: +CEPHALEXIN500 MG ORAL
--- NOTE | 2018-08-26 16:09 | NUR ---
ED Nurse Note: PT WALKED IN TO ER TODAY FROM HOME. AOX4. PT C/O WORSENING LEFT LOWER MOLAR PAIN, 04/09 X 2 DAYS AGO. PT STATES PAIN IS RADIATING TO LEFT EAR.
[2018-08-26 16:10] VITALS: BP 132/86
--- NOTE | 2018-08-26 16:21 | Emergency Room Report ---
History of Present Illness General Chief Complaint: Toothache Source: Patient Present Illness HPI 63-year-old female with history of sciatica and chronic back pain here complaining of 3 days of 10 out of 10 to take the left lower molars. She reports that she is scheduled to have a root canal done by her tenderness however the appointment is not for another 2 weeks. Patient's complaining that the pain is radiating to her left ear denies tingling or numbness. As taken ibuprofen for pain with relief. Denies fever and chills, pus drainage from her mouth, and is asking for antibiotics. Denies chest pain, SOB, palpitation. Allergies: Coded Allergies: No Known Allergies (Verified , 06/03/08) Patient History Last Menstrual Period: na Now: No Immunizations: UTD Reviewed Nursing Documentation: PMH: Agreed; PSxH: Agreed Nursing Documentation-PMH Past Medical History: No History, Except For Hx Cardiac Problems: Yes - "irregual heartrate" Hx Hypertension: Yes Hx Pacemaker: No Hx COPD: No Hx Diabetes: No Hx Cancer: No Hx Gastrointestinal Problems: Yes - GERD Hx Dialysis: No Hx Neurological Problems: Yes - migraines Hx Cerebrovascular Accident: No Hx Seizures: No Review of Systems All Other Systems: negative except mentioned in HPI Physical Exam Vital Signs Date Time Temp Pulse Resp B/P (MAP) Pulse Ox O2 Delivery O2 Flow Rate FiO2 08/26/18 15:59 98.2 88 18 135/90 98 Room Air Sp02 EP Interpretation: reviewed, normal General Appearance: normal inspection, well appearing Head: normocephalic, atraumatic Eyes: bilateral eye normal inspection, bilateral eye PERRL ENT: normal ENT inspection, normal pharynx, no angioedema Neck: normal inspection, supple Respiratory: normal inspection, lungs clear, no rhonchi Cardiovascular #1: normal inspection, no edema, no gallop Gastrointestinal: normal inspection, non tender, soft Rectal: deferred Genitourinary: deferred Musculoskeletal: normal inspection, back normal Neurologic: normal inspection, alert, oriented x3, responsive Psychiatric: normal inspection, judgement/insight normal, memory normal Skin: normal inspection, normal color, no rash, warm/dry, palpation normal Lymphatic: normal inspection, no adenopathy Medical Decision Making PA Attestation all diagnoses and treatment plans are reviewed and discussed with my supervising physician Dr. Gray Diagnostic Impression: Primary Impression: Tooth infection Additional Impression: Toothache ER Course 63-year-old female with history of sciatica and chronic back pain here complaining of 3 days of 10 out of 10 to take the left lower molars. She reports that she is scheduled to have a root canal done by her tenderness however the appointment is not for another 2 weeks. Patient's complaining that the pain is radiating to her left ear denies tingling or numbness. As taken ibuprofen for pain with relief. Denies fever and chills, pus drainage from her mouth, and is asking for antibiotics. Denies chest pain, SOB, palpitation. Ddx considered but are not limited to Melany infection, toothache of no origin, Vital signs: are WNL, pt. is afebrile H&PE are most consistent with as infection and toothache of the large ORDERS:and amoxicillin and ibuprofen ED INTERVENTIONS: None required at this time. DISCHARGE: At this time pt. is stable for d/c to home. Will provide printed patient care instructions, and any necessary prescriptions. Care plan and follow up instructions have been discussed with the patient prior to discharge. followed which her dentist referred her workup here to Last Vital Signs Date Time Temp Pulse Resp B/P (MAP) Pulse Ox O2 Delivery O2 Flow Rate FiO2 08/26/18 16:10 98.4 82 18 132/86 99 Room Air Disposition: HOME, SELF-CARE Condition: Stable Scripts Ibuprofen* (MOTRIN*) 600 Mg Tablet 600 MG ORAL FOUR TIMES A DAY, #30 TAB 0 Refills Prov: Josh Galarza 08/26/18 Amoxicillin* (AMOXIL*) 500 Mg Capsule 500 MG ORAL EVERY 12 HOURS for 10 Days, #20 CAP Prov: Josh Galarza 08/26/18 Patient Instructions: Dental Pain Additional Instructions: follow with dentist regarding her tooth infection and pain. Take medication as directed avoid chewing with the affected side avoid cold and hot fluid Josh Galarza Aug 26, 2018 16:21
[2018-08-26] MEDS ORDERED: IBUPROFEN600 MG ORAL (16:22)
[2018-08-26] MEDS ORDERED: AMOXICILLIN500 MG ORAL (16:22)
--- NOTE | 2018-08-26 16:32 | NUR ---
ED Nurse Note: PT SITTING PEACEFULLY IN BED IN NAD. AOX4. PRESCRIPTIONS AND DISCHARGE PAPERWORK EXPLAINED TO PT. PT VERBALIZES UNDERSTANDING AND ALL QUESTIONS ANSWERED. PRESCRIPTIONS AND DISCHARGE PAPERWORK GIVEN TO PT AND ID WRISTBAND REMOVED. PT WALKED OUT OF ER WITH STEADY GAIT AND ALL BELONGINGS.
[2018-08-26 16:33] VITALS: BP 133/88
== END 2018-08-26 16:35 | disposition home or self-care (01) ==
LOC: EMR 16:35
DX: K08.89 Other specified disorders of teeth and supporting structures (principal); I10 Essential (primary) hypertension; K21.9 Gastro-esophageal reflux disease without esophagitis
CPT/HCPCS: 99282